=== PATIENT | female | born 1980 | race Caucasian/White ===

== ENCOUNTER 2017-08-14 10:37 | Emergency (ER) | payer SELFPAY ==
[2017-08-14] MEDS ORDERED: PROPARACAINE 0.5% OPHTH DROPS 15 ML LEFTEYE STA (12:28)
[2017-08-14] MEDS ORDERED: IBUPROFEN 800 MG TABLET PO STA (12:43)
--- NOTE | 2017-08-14 12:47 | ED Physician Documentation ---
PD HPI OPHTHO - Stated complaint Stated Complaint: LEFT EYE PX - Chief complaint Chief Complaint: Heent - History obtained from History obtained from: Patient - History of Present Illness Timing - onset: How many days ago (5) Timing - details: Still present Location: Left Quality / character: Aching Associated symptoms: Double vision, Decreased vision, Headache Similar symptoms before: Has not had sx before - Additional information Additional information: The patient is a 36-year-old female who presents with left retro-orbital pain that started 5 days ago and has persisted since that time. She noticed double vision yesterday and today. This morning she also noticed a "lyons film" in the vision of her left eye. She reports associated left retro-orbital headache. She denies fever, earache, sore throat, or cough. She reports mild nausea, without vomiting. She has no history of similar symptoms in the past. Past medical history is significant for recurrent sinus infections, but this feels different from his previous sinus infections. She does not wear corrective lenses. Review of Systems Constitutional: denies: Fever Eyes: reports: Decreased vision. denies: Photophobia Ears: denies: Ear pain Nose: denies: Congestion Throat: denies: Sore throat Cardiac: denies: Chest pain / pressure Respiratory: denies: Dyspnea, Cough GI: reports: Nausea. denies: Abdominal Pain, Vomiting : denies: Dysuria Skin: denies: Rash Musculoskeletal: denies: Neck pain Neurologic: reports: Headache. denies: Focal weakness, Numbness PD PAST MEDICAL HISTORY - Past Medical History Past Medical History: No Cardiovascular: None Respiratory: None Endocrine/Autoimmune: None - Past Surgical History Past Surgical History: Yes General: Other /[employer]: LEEP (Cervical surgery) - Present Medications Home Medications: Ambulatory Orders Medication Instructions Recorded Confirmed Cetirizine [ZyrTEC] 10 mg PO DAILY 05/16/14 05/16/14 - Allergies Allergies/Adverse Reactions: Allergies Allergy/AdvReac Type Severity Reaction Status Date / Time No Known Drug Allergies Allergy Verified 08/14/17 10:48 - Social History Does the pt smoke?: No Smoking Status: Never smoker Does the pt drink ETOH?: No Does the pt have substance abuse?: No - Immunizations Immunizations are current?: Yes - POLST Patient has POLST: No PD ED PE NORMAL - Vitals Vital signs reviewed: Yes (Normal) - General General: Alert and oriented X 3, Well developed/nourished - HEENT HEENT: Atraumatic, PERRL, EOMI, Ears normal, Pharynx benign - Neck Neck: Supple, no meningeal sign, No adenopathy - Cardiac Cardiac: RRR, No murmur - Respiratory Respiratory: No respiratory distress, Clear bilaterally - Abdomen Abdomen: Soft, Non tender - Back Back: No CVA TTP - Derm Derm: No rash - Extremities Extremities: No edema - Neuro Neuro: Alert and oriented X 3, No motor deficit, Normal speech Eye Opening: Spontaneous Motor: Obeys Commands Verbal: Oriented GCS Score: 15 PD ED PE EXPANDED - Eyes Eyes: Visual acuity - see nn (20/20 right eye; 20/40 left), Normal accommodation , EOMI (There is increased discomfort with lateral or upward gaze.), Normal eyelids, Nl conjunctiva/sclera, Normal corneas, Anterior chambers clear, Normal fundi, Other (Intraocular pressure 12 in left eye.). No: Fluorescein uptake, Papilledema Results - Vitals Vitals: Vital Signs - 24 hr 08/14/17 08/14/17 08/14/17 10:45 15:00 17:58 Temperature 37.0 C Heart Rate 86 80 76 Respiratory 16 20 16 Rate Blood Pressure 129/77 122/76 112/67 O2 Saturation 100 99 Oxygen O2 Source Room air - Rads (name of study) CT orbital Radiology: Prelim report reviewed, EMP read contemporaneously, See rad report ( Expansile hypodense soft tissue mass with nonaggressive bone erosion seen involving left mid and posterior ethmoid air cells. Bone erosion extends into the medial aspect of the left orbital apex and optic canal. Extrinsic mass- effect is seen involving the left optic nerve and annulus of Jesús. The appearance is most consistent with mucocele. No aggressive bone destruction is seen to suggest neoplasm.) PD MEDICAL DECISION MAKING - ED course Complexity details: reviewed results, re-evaluated patient, considered differential, d/w patient, d/w family, d/w test consultant ED course: The patient's presentation is significant for ethmoid mucocele causing bony erosion and impingement on the left retro-orbital soft tissue, extraocular musculature, and optic nerve. Intraocular pressure is normal, and there is no apparent retinal abnormality on funduscopic exam. Treatment in the emergency department included administration of ibuprofen 800 mg orally. I discussed her condition with the ENT specialist at [facility] , and he suggests that the patient be referred to [facility]. I discussed her current admission with the triage nurse at [facility] who after paging both ENT and ophthalmology put me in touch with the stock sheets cleaner inspector, Dr. Rosado. She will accept the patient in transfer. Peripheral IV was heparin locked and secured in place. The patient will be transferred by private auto, with her Mother driving. She will remain NPO. Transfer forms were completed. Departure - Departure Disposition: 02 Transfer Acute Care Hosp Clinical Impression: Mucocele of ethmoid sinus, Visual impairment Condition: Stable Comments: Go directly to the emergency department at [facility]. Do not eat or drink anything. Dr. Rosado of ophthalmology will see you in the emergency department there. Discharge Date/Time: 08/14/17 17:59
[2017-08-14] MEDS ORDERED: IOPAMIDOL-300 100 ML VIAL ONE (12:54)
[2017-08-14] MEDS ORDERED: IOPAMIDOL-300 100 ML VIAL IVP ONE (13:56)
--- NOTE | 2017-08-14 14:33 | CT Preliminary Report ---
Exam: CT ORBITS W/ IMPRESSION: 1. Expansile hypodense soft tissue mass with nonaggressive bone erosion seen involving left mid and p osterior ethmoid air cells. Bone erosion extends into the medial aspect of the left orbital apex and optic canal. Extrinsic mass effect is seen involving the left optic nerve and anulus of Jesús. The alcides earance is most consistent with mucocele. No aggressive bone destruction is seen to suggest neoplasm. Critical result: Findings are discussed with referring physician, Dr. Desmond Caldwell, on 08/14/2017 at 1422 hrs. [facility] SITE ID: [id number]
--- NOTE | 2017-08-14 14:45 | CT Report ---
EXAM: CT ORBITS WITH CONTRAST EXAM DATE: 08/14/2017 01:21 PM. CLINICAL HISTORY: Left retro-orbital pain, with diplopia. COMPARISONS: None. TECHNIQUE: Thin-section axial images were acquired of the orbits after administration of intravenous contrast. Post-processing: Coronal and sagittal reformats. Other: None. IV contrast: 80 mL Isovue [address] protocol optimization, one or more of the following dose reduction techniques w ere utilized for this exam: automated exposure control, adjustment of mA and/or KV based on patient s ize, or use of iterative reconstructive technique. FINDINGS: Orbits:Extraconal soft tissue mass-effect is seen at the left orbital apex. This is secondary to expa nsion and erosion of the posterior aspect of the lamina papyracea. This causes extrinsic mass-effect on the annulus of Jesús and origin of extraocular muscles as well as the optic nerve at the junction o f the orbital and intracranial segments and optic canal. Subtle mild proptosis of the left globe is s een. The right orbit is unremarkable. Soft Tissue: No abnormal inflammation or fluid collection. No soft tissue mass. The infratemporal fos sa and parapharyngeal spaces are unremarkable. Bones: No fracture. Temporomandibular Joints: The temporomandibular joints are symmetric and normally located. Sinuses: Expansion and mild hypodense opacification is seen involving mid and posterior left ethmoid air cells extending into the anterior sphenoid sinus. This measures approximately 17 x 33 x 17 mm. No naggressive bone erosion is seen posteriorly. This involves the posterior aspect of the lamina papyra cea at the left orbital apex and optic canal. This extends posteriorly into the anterior left sphenoi d sinus with partial bone erosion in this location. Mild thinning of the planum sphenoidale is noted without extension into the intracranial compartment. Minimal mucosal thickening is seen inferiorly in the left maxillary antrum and left sphenoid sinus. Glands: The partially visualized parotid glands are unremarkable. Other: None. IMPRESSION: 1. Expansile hypodense soft tissue mass with nonaggressive bone erosion seen involving left mid and p osterior ethmoid air cells. Bone erosion extends into the medial aspect of the left orbital apex and optic canal. Extrinsic mass-effect is seen involving the left optic nerve and annulus of Jesús. The ap pearance is most consistent with a mucocele. No aggressive bone destruction is seen to suggest neopla sm. Critical result: Findings are discussed with referring physician, Dr. Desmond Caldwell, on 08/14/2017 at 1422 hrs. [facility] Referring Provider Line: [phone] SITE ID: [id number]
[2017-08-14 17:59] VITALS: BP 112/67
== END 2017-08-14 17:59 | disposition short-term general hospital (02) ==
LOC: ED 10:37
DX: J34.1 Cyst and mucocele of nose and nasal sinus (principal); H54.7 Unspecified visual loss
CPT/HCPCS: 70481; 99283; 99285; A9270; J3490; Q9967

== ENCOUNTER 2017-12-10 13:13 | Outpatient (CLI) | payer OTHER ==
[2017-12-10 18:27] LABS: BASOPHILS % (AUTO) 0.8 %; EOSINOPHILS # (AUTO) 0.1 10^3/uL (0.0-0.7); EOSINOPHILS % (AUTO) 2.6 %; HGB - HEMOGLOBIN 13.2 g/dL (12.0-16.0); LYMPHOCYTES # (AUTO) 1.1 10^3/uL (1.5-3.5); LYMPHOCYTES % (AUTO) 26.6 %; MEAN CORPUSCULAR HEMOGLOBIN 29.4 pg (27.0-31.0); MEAN CORPUSCULAR HGB CONC 34.4 g/dL (32.0-36.0); MEAN CORPUSCULAR VOLUME 85.6 fL (81.0-99.0); MEAN PLATELET VOLUME 7.7 fL (7.9-10.8); MONOCYTES # (AUTO) 0.2 10^3/uL (0.0-1.0); MONOCYTES % (AUTO) 5.3 %; NEUTROPHILS # (AUTO) 2.7 10^3/uL (1.5-6.6); NEUTROPHILS % (AUTO) 64.7 %; PLT - PLATELET COUNT 306 10^3/uL (130-450); RED BLOOD COUNT 4.49 10^6/uL (4.20-5.40); RED CELL DISTRIBUTION WIDTH 12.9 % (12.0-15.0); WHITE BLOOD COUNT 4.2 x10^3/uL (4.8-10.8)
[2017-12-10 18:37] LABS: ALBUMIN 4.5 g/dL (3.2-5.5); ALBUMIN/GLOBULIN RATIO 1.4 (1.0-2.2); ALKALINE PHOSPHATASE 12 IU/L (42-121); ALT ALANINE AMINOTRANSFERASE 13 IU/L (10-60); AST ASPARTATE AMINOTRANSFERASE 17 IU/L (10-42); BILIRUBIN,TOTAL 0.4 mg/dL (0.2-1.0); BUN - BLOOD UREA NITROGEN 11 mg/dL (6-20); CARBON DIOXIDE - CO2 28 mmol/L (21-32); CHLORIDE 100 mmol/L (101-111); CREATININE 0.6 mg/dL (0.4-1.0); CRP - C-REACTIVE PROTEIN 1.4 mg/dL (0-1.0); GFR - MDRD 113 (>89); GLUCOSE 114 mg/dL (70-100); SODIUM 135 mmol/L (135-145); TOTAL PROTEIN 7.7 g/dL (6.7-8.2)
[2017-12-10 20:02] LABS: RHEUMATOID FACTOR POSITIVE (Negative)
[2017-12-12 19:12] LABS: ANA SCREEN POSITIVE (NEGATIVE)
== END 2017-12-10 13:14 | disposition home or self-care (01) ==
LOC: LAB.F 13:13
PROVIDERS: ATTEND Nurse Practitioner Family
DX: R53.83 Other fatigue (principal); M25.50 Pain in unspecified joint
CPT/HCPCS: 36415; 80053; 84443; 85025; 85651; 86038; 86039; 86140; 86430

== ENCOUNTER 2019-02-25 08:00 | Outpatient (CLI) | payer OTHER | END 2019-02-25 08:01 | disposition home or self-care (01) | LOC: LAB.R 08:00 | PROVIDERS: ATTEND Physician Assistant Medical | DX: N39.0 Urinary tract infection, site not specified (principal) | CPT/HCPCS: 87086; 87181 ==

== ENCOUNTER 2019-04-09 11:48 | Outpatient (CLI) | payer OTHER ==
--- NOTE | 2019-04-10 13:06 | XRAY Report ---
Reason: UNSPECIFIED INJURY OF RIGHT FOOT, S99.921A Procedure Date: 04/09/2019 Accession Number: [id number] / [id number] Procedure: XRS - Foot 2 View RT CPT Code: FULL RESULT: EXAM: RIGHT FOOT RADIOGRAPHY EXAM DATE: 04/09/2019 11:38 AM. CLINICAL HISTORY: Persistent pain at the base of the right fifth metatarsal bone status post trauma 2 days prior to this examination. COMPARISON: None. TECHNIQUE: 2 views. FINDINGS: Bones: There is a stress fracture of the proximal diaphysis of the right fifth metatarsal bone. No acute fracture. No focal bone lesion. Bone mineralization is normal. Joints: Normal. No subluxations. Soft Tissues: No appreciable soft tissue swelling. IMPRESSION: Stress fracture of the proximal diaphysis of the right fifth metatarsal bone. [facility]
== END 2019-04-09 11:49 | disposition home or self-care (01) ==
LOC: DI.S 11:48
PROVIDERS: ATTEND Family Medicine
DX: M84.374A Stress fracture, right foot, initial encounter for fracture (principal)

== ENCOUNTER 2020-05-09 12:43 | Outpatient (CLI) | payer OTHER | END 2020-05-09 12:44 | disposition home or self-care (01) | LOC: COV 12:43 | PROVIDERS: ATTEND Family Medicine | DX: R50.9 Fever, unspecified (principal); M79.10 Myalgia, unspecified site; R19.7 Diarrhea, unspecified; R11.2 Nausea with vomiting, unspecified; Z20.828 Contact with and (suspected) exposure to other viral communicable diseases ==